=== PATIENT | male | born 1985 | race Two or more races ===

== ENCOUNTER 2017-02-07 16:21 | Emergency (ER) | payer SELFPAY ==
[~2017-02-07] VITALS: Ht 170.2 cm; Wt 85.7 kg
[2017-02-07] MEDS ORDERED: CYCL10TA2 PO (17:42)
[2017-02-07] MEDS ORDERED: PRED20TA PO (17:42)
--- NOTE | 2017-02-07 17:42 | PHYS DOC ---
Past Medical History Past Medical History: No Pertinent History Past Surgical History: Other Additional Past Surgical Histo: rt wrist fx repair Alcohol Use: None Drug Use: None Adult General Chief Complaint Chief Complaint: LOWER EXT PAIN [facility] HPI Patient is a 31 year old male presents emergency department stating that he went on 3 mile run and after he had finished approximately 15-20 minutes after he started having severe left lower back pain that radiates down into his leg. He states he take 800 mg of ibuprofen prior to arrival with no relief of pain and discomfort. He denies any tingling into his foot. He does state that the pain radiated down to the back part of his leg at the knee. Patient denies ever having this type of pain and discomfort in the past. Patient does arrive with a laundry route driver. He denies any other trauma or injury other than running. Review of Systems Review of Systems Constitutional: Denies fever or chills [] Eyes: Denies change in visual acuity, redness, or eye pain [] HENT: Denies nasal congestion or sore throat [] Respiratory: Denies cough or shortness of breath [] Cardiovascular: No additional information not addressed in HPI [] GI: Denies abdominal pain, nausea, vomiting, bloody stools or diarrhea [] : Denies dysuria or hematuria [] Musculoskeletal: left lower back pain with radiation of pain into the left leg denies joint pain [] Integument: Denies rash or skin lesions [] Neurologic: Denies headache, focal weakness or sensory changes [] Endocrine: Denies polyuria or polydipsia [] Allergies Allergies Allergies Coded Allergies Type Severity Reaction Last Updated Verified No Known Drug Allergies 02/07/17 No Physical Exam Physical Exam Constitutional: Well developed, well nourished, no acute distress, non-toxic appearance. [] HENT: Normocephalic, atraumatic, bilateral external ears normal, oropharynx moist, no oral exudates, nose normal. [] Eyes: PERRLA, EOMI, conjunctiva normal, no discharge. [] Neck: Normal range of motion, no tenderness, supple, no stridor. [] Cardiovascular:Heart rate regular rhythm, no murmur [] Lungs & Thorax: Bilateral breath sounds clear to auscultation [] Skin: Warm, dry, no erythema, no rash. [] Back: Left lower back tenderness. Upon palpation of the left lower back he developed tenderness with pain shooting down his leg to the knee. Extremities: No tenderness, no cyanosis, no clubbing, ROM intact, no edema. Peripheral pulses 2+, Refill brisk less than 2 seconds. Patient with full range of motion of the extremity. Neurologic: Alert and oriented X 3, normal motor function, normal sensory function, no focal deficits noted. [] Psychologic: Affect normal, judgement normal, mood normal. [] Current Patient Data Vital Signs Vital Signs Date Time Temp Pulse Resp B/P (MAP) Pulse Ox O2 Delivery O2 Flow Rate FiO2 02/07/17 16:59 98.6 68 20 99 Room Air 98.6 EKG EKG [] Radiology/Procedures Radiology/Procedures [] Course & Med Decision Making Course & Med Decision Making Pertinent Labs and Imaging studies reviewed. (See chart for details) Patient will be provided with Flexeril, prednisone, and [place] here the emergency department as he has started taken 800 mg of ibuprofen. He will be discharged home with a prescription for Flexeril and prednisone. Patient was instructed that Flexeril will cause drowsiness do not take any be alert and oriented. Recommended ice packs to the area of discomfort on 20 minutes off 20 minutes several times today. Patient will be discharged home in stable condition. Signs and symptoms to return back to emergency department has been provided. The patient regards to stretching prior and after exercising. [] Dragon Disclaimer Dragon Disclaimer This electronic medical record was generated, in whole or in part, using a voice recognition dictation system. Departure Departure Impression: Primary Impression: Sciatica of left side Disposition: HOME, SELF-CARE Condition: STABLE Referrals: NO PCP (PCP) Patient Instructions: Sciatica, [id number] Additional Instructions: Activity as tolerated. Continue the ibuprofen 800 mg every 8 hours with food. Stop taking the medication if you develop an upset stomach. Flexeril will help with muscle spasms this medication will cause drowsiness do not take any be alert and oriented. Ice packs on 20 minutes off 20 minutes several times a day. Follow-up with her primary care physician in the next 7-10 days. Return back to emergency prior signs and symptoms of become worse. Scripts Prednisone (PREDNISONE) 20 Mg Tablet 40 MG PO DAILY for 7 Days, #14 TAB Prov: CHETAN COBOS APRN 02/07/17 Cyclobenzaprine Hcl (CYCLOBENZAPRINE HCL) 10 Mg Tablet 10 MG PO TID, #30 TAB Prov: CHETAN COBOS APRN 02/07/17 CHETAN COBOS APRN February 07, 2017 17:42
[2017-02-07] MEDS ORDERED: CYCLOBENZAPRINE 10 MG TABLET. PO ONE (17:45)
[2017-02-07] MEDS ORDERED: HYDROcodone/APAP 5/325MG 1 TAB TABLET PO ONE (17:45)
[2017-02-07] MEDS ORDERED: predniSONE 20 MG TABLET PO ONE (17:45)
[2017-02-07 18:01] VITALS: BP 147/69
== END 2017-02-07 18:01 | disposition home or self-care (01) ==
LOC: ER 16:21
DX: M54.42 Lumbago with sciatica, left side (principal)
CPT/HCPCS: 99284; J7512